=== PATIENT | female | born 1995 | race Caucasian/White ===

== ENCOUNTER 2019-07-25 06:52 | Emergency (ER) | payer OTHER, SELFPAY ==
--- NOTE | ~2019-07-25 | XR_ITS ---
EXAMINATION: XR chest 2V DATE: 07/25/2019 07:16 INDICATION: Cough, congestion, nausea and vomiting TECHNIQUE: frontal and lateral views of the chest were obtained. COMPARISON: Chest radiograph dated 08/17/2016 FINDINGS: Unchanged mild anterior left basilar atelectasis/scarring. The lungs are otherwise clear with no foca l airspace opacities, pulmonary edema, pleural effusion or pneumothorax. The cardiomediastinal silhou ette is normal. IMPRESSION: 1. Unchanged mild left basilar atelectasis/scarring. No acute cardiopulmonary disease. Reviewed, dictated and finalized at location A. [employer] IMPRESSION: 1. Unchanged mild left basilar atelectasis/scarring. No acute cardiopulmonary d isease.
[2019-07-25 06:55] VITALS: BP 113/69; PULSE 113; RESP 22; TEMP 36.5; O2SAT 100
--- NOTE | 2019-07-25 07:02 | ED.GENADULT ---
HPI - General Adult General Chief complaint: Upper Respiratory Infection Stated complaint: vomiting Time Seen by Provider: 07/25/19 07:01 Source: patient Mode of arrival: ambulatory Limitations: no limitations History of Present Illness HPI narrative: Patient is a 24-year-old female who presents for evaluation of cough, cold symptoms and now vomiting that began this morning. Patient reports numerous episodes of nonbloody, nonbilious emesis this morning. She states she has been feeling unwell for 2 weeks with sinus congestion and productive cough. She denies shortness of breath. She denies abdominal pain, reports only nausea. She denies painful urination, dysuria, hematuria. Patient does not believe she is . She denies vaginal discharge or bleeding. She denies rashes. Related Data Allergies Allergy/AdvReac Type Severity Reaction Status Date / Time No Known Allergies Allergy Unknown Verified 07/25/19 07:09 Review of Systems Review of Systems: Narrative: CONSTITUTIONAL: Reports fever, chills, denies sweats EYES: Denies visual changes, redness, or discharge. ENT: Reports rhinorrhea, congestion, sore throat, denies otalgia CARDIOVASCULAR: Denies chest pain, palpitations, or edema. RESPIRATORY: Reports cough, denies shortness of breath GASTROINTESTINAL: Reports nausea, vomiting, denies diarrhea or abdominal pain GENITOURINARY: Denies dysuria or hematuria. SKIN: Denies rash or itching. MUSCULOSKELETAL: Denies back pain, joint pain, or myalgia. NEUROLOGIC: Denies headache, numbness, or weakness. [facility] Past Medical History Medical History (Updated 07/25/19 @ 08:31 by Kelly Langley MD) Spontaneous pneumothorax Surgical History Surgical History (Updated 07/25/19 @ 07:10 by Kelly Langley MD) H/O chest tube placement Social History Social History (Updated 07/25/19 @ 08:33 by Kelly Langley MD) Smoking status: Current every day smoker Tobacco type: cigarettes Alcohol intake: never Substance use: never Living arrangements: with family Gender identity (if verbalized by the patient): Female Exam Narrative: Exam Narrative: GENERAL: Well-appearing, well-nourished, and in no acute distress. HEAD: Normocephalic, atraumatic. EYES: PERRLA and EOMI. ENT: Nares clear, + rhinorrhea, no epistaxis. Mucous membranes moist. NECK: Supple. CHEST: Clear to auscultation. No respiratory distress. HEART: Tachycardic rate and rhythm. No murmur heard. Normal peripheral pulses. ABDOMEN: Soft, nontender, nondistended, normal active bowel sounds. EXTREMITIES: Normal range of motion. No edema. SKIN: Warm, dry, no rash. NEURO: No focal deficits. Alert and oriented x3. Ambulatory with a narrow base, steady gait, no ataxia. Course Course Emergency Course: Patient presented to the emergency department for evaluation of cough, cold congestion, sore throat, vomiting that this morning. Patient has no abdominal pain. No dysuria or hematuria. IV access obtained, patient was given IV fluids, antiemetic and Tylenol. Laboratory results are reassuring. Patient is not . No UTI. No severe electrolyte derangement or leukocytosis. Patient's tachycardia improved. She felt improved after receiving IV fluids. No recurrent abdominal pain on exam. Doubt appendicitis as no right lower quadrant pain. No other clinical symptoms to suggest this. Patient had no recurrent vomiting in the emergency department. Unlikely given the congestion this is all viral in nature. Influenza and strep swabs negative. Patient was discharged in stable condition to follow-up with her PCP. Vital Signs Vital signs: Vital Signs Temperature 36.5 C 07/25/19 06:55 Pulse Rate 113 H 07/25/19 06:55 Respiratory Rate 22 H 07/25/19 06:55 Blood Pressure 113/69 07/25/19 06:55 Pulse Oximetry 100 07/25/19 06:55 Temperature 36.5 C 07/25/19 06:55 Pulse Rate 113 H 07/25/19 06:55 Respiratory Rate 22 H 07/25/19 06:55 Blood Pres
[2019-07-25 07:18] LABS: Basophils Percent Auto 0.5 % (0.2-1.2); Eosinophils Absolute Auto 0.1 K/mm3 (0-0.3); Eosinophils Percent Auto 0.9 % (0-4.4); Hematocrit 38.9 % (37.0-47.0); Hemoglobin 12.3 g/dL (12.0-15.0); Immature Granulocyte Absolute 0.01 K/mm3 (0.00-0.031); Immature Granulocyte Percent A 0.2 % (0-0.5); Lymphocytes Absolute Auto 1.25 K/mm3 (0.9-3.2); Lymphocytes Percent Auto 22.7 % (18.3-44.2); Mean Corpuscular HGB Conc 31.6 g/dl (32-36); Mean Corpuscular Hemoglobin 28.5 pg (26-34); Mean Platelet Volume 9.3 fl (7.4-10.4); Monocytes Absolute Auto 0.7 K/mm3 (0.1-0.6); Monocytes Percent Auto 13.3 % (2.6-8.5); Neutrophils Absolute Auto 3.4 K/mm3 (1.3-6.7); Neutrophils Percent Auto 62.4 % (45.5-73.1); Platelet Count Result 283 k/mm3 (150-375); Red Blood Count 4.32 M/mm3 (4.2-5.4); Red Cell Distribution Width 12.3 % (11.5-14.5); White Blood Count 5.5 K/mm3 (4.5-10.0)
--- NOTE | 2019-07-25 07:20 | PC.NURSE ---
Bedside report received from ARIELLE Beth. Throat swabbed for strep. Blood and urine sent to lab. Pt to radiology for CXR.
[2019-07-25 07:24] LABS: Add Urine Microscopic? YES; Appearance Urine Clear (Clear); Bilirubin Urine Negative (Negative); Blood Urine 1+ (Negative); Color Urine Yellow (Yellow); Glucose Urine UA Negative (Negative); Ketones Urine Trace mg/dL (Negative); Leukocyte Esterase Ur Negative LEU/UL (Negative); Mucus Urine Moderate /lpf; Nitrate Urine Negative (Negative); Protein Urine Negative (Negative); Specific Grav Ur 1.021 (1.001-1.035); Squamous Epithelial Cell Urine Many /hpf (Few); Urobilinogen Urine Negative mg/dL (<2.0); WBC Urine 0-3 /hpf
[2019-07-25] MEDS: ONDANSETRON INJ 4 MG/2 ML VIAL IV PUSH (07:28)
[2019-07-25] MEDS: SODIUM CHLORIDE 0.9% IV 1,000 ML 999 ML IV CONT (07:28)
[2019-07-25] MEDS: ACETAMINOPHEN 500 MG TABLET 1000 MG PO (07:28)
[2019-07-25 07:31] LABS: Alanine Aminotransferase 12 U/L (4-35); Albumin Level 4.6 g/dL (3.5-5.1); Alkaline Phosphatase 53 U/L (38-126); Aspartate Amino Transferase 20 U/L (14-36); Bilirubin,Total 0.4 mg/dL (0.2-1.3); Blood Urea Nitrogen 9 mg/dL (7-17); Calcium 9.1 mg/dL (8.4-10.2); Carbon Dioxide 26 mmol/L (22-30); Chloride 103 mmol/L (98-107); Estimated CRCL calculation 114 ml/min; Estimated Glomerular Filt Rate > 60; Glucose 91 mg/dL (65-105); Lipase 95 U/L (23-300); Potassium 3.5 mmol/L (3.4-5.0); Sodium 139 mmol/L (137-145)
== END 2019-07-25 08:55 | disposition home or self-care (01) ==
PROVIDERS: Emergency Provider Emergency Medicine
DX: J06.9 Acute upper respiratory infection, unspecified (principal); F17.200 Nicotine dependence, unspecified, uncomplicated
CPT/HCPCS: 36415; 71046; 80053; 81001; 81025; 83690; 85025; 87081; 87804; 87880; 96361; 96374; 99284; A9270; J2405; J7030

== ENCOUNTER 2022-05-06 11:16 | Outpatient (CLI) | payer BC, SELFPAY ==
[2022-05-06 19:41] LABS: Basophils Absolute Auto 0.1 K/mm3 (0.0-0.1); Basophils Percent Auto 0.9 % (0.2-1.2); Eosinophils Percent Auto 0.5 % (0-4.4); Hematocrit 39.6 % (37.0-47.0); Hemoglobin 12.5 g/dL (12.0-15.0); Immature Granulocyte Absolute 0.02 K/mm3 (0.00-0.031); Immature Granulocyte Percent A 0.3 % (0-0.5); Lymphocytes Absolute Auto 1.66 K/mm3 (0.9-3.2); Lymphocytes Percent Auto 25.3 % (18.3-44.2); Mean Corpuscular HGB Conc 31.6 g/dl (32-36); Mean Corpuscular Hemoglobin 29.4 pg (26-34); Mean Corpuscular Volume 93.2 fl (80-100); Mean Platelet Volume 9.5 fl (7.4-10.4); Monocytes Absolute Auto 0.5 K/mm3 (0.1-0.6); Monocytes Percent Auto 7.5 % (2.6-8.5); Neutrophils Absolute Auto 4.3 K/mm3 (1.3-6.7); Neutrophils Percent Auto 65.5 % (45.5-73.1); Platelet Count Result 359 k/mm3 (150-375); Red Blood Count 4.25 M/mm3 (4.2-5.4); Red Cell Distribution Width 11.9 % (11.5-14.5); White Blood Count 6.6 K/mm3 (4.5-10.0)
[2022-05-06 19:42] LABS: Alanine Aminotransferase 16 U/L (6-35); Albumin Level 5.1 g/dL (3.5-5.1); Alkaline Phosphatase 63 U/L (38-126); Amylase 79 U/L (30-110); Anion Gap 10 mmol/L (8-16); Aspartate Amino Transferase 31 U/L (14-36); Bilirubin,Total 0.6 mg/dL (0.2-1.3); Blood Urea Nitrogen 9 mg/dL (7-17); Carbon Dioxide 25 mmol/L (22-30); Chloride 103 mmol/L (98-107); Estimated Glomerular Filt Rate > 60; Glucose 88 mg/dL (65-110); Lipase 91 U/L (23-300); Potassium 3.9 mmol/L (3.4-5.0); Sodium 138 mmol/L (137-145)
== END 2022-05-06 11:17 | disposition home or self-care (01) ==
LOC: ANHGOSHLAB 11:17
PROVIDERS: PCP Family Medicine; Visit Provider Nurse Practitioner
DX: R10.10 Upper abdominal pain, unspecified (principal)
CPT/HCPCS: 36415; 80053; 82150; 83690; 85025

== ENCOUNTER → 2022-05-11 10:16 | Outpatient (CLI) | payer BC, SELFPAY ==
--- NOTE | ~2022-05-11 | US_ITS ---
Limited Abdominal Sonogram: Real-time sonographic imaging of the right upper quadrant was performed. Clinical History: Right upper quadrant pain Findings: The liver appears normal and echotexture, with no evidence of bile duct dilatation. 5 mm h yperechoic lesion present in the right hepatic lobe. Main portal vein demonstrates normal direction o f flow. The gallbladder is partially distended, and appears normal with no evidence of gallstone or w all thickening. The common bile duct measures 3 mm. The visualized pancreas, aorta, and IVC are unre markable. Impression: 5 mm hyperechoic right hepatic lobe lesion, statistically most likely hemangioma. Given small size, c onsider follow-up exam in 6 months to one year versus MR examination to attempt to confirm hemangioma . Reviewed, dictated and finalized at location [] [facility] [employer] Impression: 5 mm hyperechoic right hepatic lobe lesion, statistically most likely hemangiom a. Given small size, consider follow-up exam in 6 months to one year versus MR examination to attempt to confirm hemangioma.
== END ==
PROVIDERS: PCP Nurse Practitioner; Visit Provider Nurse Practitioner
DX: R10.11 Right upper quadrant pain (principal)
CPT/HCPCS: 76705

== ENCOUNTER 2025-04-24 08:18 | Outpatient (CLI) | payer BC, SELFPAY ==
--- NOTE | ~2025-04-24 | MMUS_ITS ---
EXAMINATION: MM diagnostic ramona BI w blaise, US breast BI complete HISTORY: Palpable right breast lump TECHNIQUE: Additional 3-D tomosynthesis images of the breasts were performed and synthetic 2-D images were generated. CAD analysis was submitted and interpreted. High resolution bilateral complete breast ultrasound was performed. COMPARISON: No prior studies for comparison. BREAST PARENCHYMAL COMPOSITION: Dense: The breasts are extremely dense, which lowers the sensitivity of mammography. FINDINGS: MAMMOGRAPHIC FINDINGS: In the area of palpable concern in the right breast, lower outer quadrant there is an obscured lobulated mass, anterior-middle depth. No suspicious masses, calcifications or architectural distortion in the left breast to suggest malignancy. ULTRASOUND: Complete US of all 4 quadrants of the breast/s and retroareolar region was reviewed. Right breast: At 8:00, 4.5 cm from the nipple there is an oval heterogeneously hypoechoic mass measuring 3.4 cm with internal vascularity and posterior acoustic enhancement. At 10:00, 5 cm from the nipple there is a 5 mm cyst. At 12:00, 4 cm from the nipple there is an oval hypoechoic mass with echogenic hilum measuring 7 mm, likely benign intramammary lymph node. At 2:00, 4 cm from the nipple there is an oval hypoechoic mass measuring 7 mm without internal vascularity or posterior features, likely benign. At 5:00, 2 cm from the nipple there is a 7 mm cyst. At 6:00, 1 cm from the nipple there are 2 adjacent cysts measuring up to 11 mm. Left breast: At 1:00, 1 cm from the nipple there is a 6 mm oval hypoechoic mass with parallel orientation, no internal vascularity and no posterior features, likely benign. At 9:00, 4 cm from the nipple there is a 7 mm cyst. At 10:00, 3 cm from the nipple there is an oval hypoechoic mass measuring 7 mm without internal vascularity or posterior features. At 10:00 near the nipple there is an oval 6 mm hypoechoic mass with internal vascularity and no posterior features, likely benign. IMPRESSION: 1. Probable benign bilateral breast masses. 2. Recommend 6 month follow-up diagnostic bilateral mammogram and bilateral breast ultrasound. BI-RADS category 3, probably benign findings. Reviewed, dictated and finalized at location I. [employer] IMPRESSION: 1. Probable benign bilateral breast masses. 2. Recommend 6 month follow-up diagnostic bilateral mammogram and bilateral marya ast ultrasound. BI-RADS category 3, probably benign findings.
== END 2025-04-24 08:19 | disposition home or self-care (01) ==
PROVIDERS: PCP Nurse Practitioner Family; Visit Provider Nurse Practitioner Family
DX: N63.10 Unspecified lump in the right breast, unspecified quadrant (principal); R92.8 Other abnormal and inconclusive findings on diagnostic imaging of breast
CPT/HCPCS: 76641; 77062; 77066; G0279